=== PATIENT | female | born 1965 | race Two or more races ===

== ENCOUNTER 2022-12-20 06:30 | Inpatient (IN) | payer OTHER ==
[2022-12-19 12:53] VITALS: BMI 31.3
[2022-12-20 07:09] VITALS: BP 166/97; PULSE 76; RESP 20; TEMP 98.5
== END 2022-12-20 08:30 | disposition home or self-care (01) | DRG 761 ==
LOC: J2C 06:30
PROVIDERS: ADMIT Obstetrics & Gynecology; ATTEND Obstetrics & Gynecology
DX: D25.9 Leiomyoma of uterus, unspecified (principal); Z53.9 Procedure and treatment not carried out, unspecified reason